=== PATIENT | male | born 1955 | race Caucasian/White ===

== ENCOUNTER 2022-12-16 06:37 | Day surgery (SDC) | payer OTHER, SELFPAY ==
--- NOTE | 2022-12-15 10:31 | HO.ANESPROP2 ---
Documented by User: Marva Emmanuel NP 12/15/22 10:32 HPI - Anesthesia Eval Consult details Narrative: 67yo M for Colonoscopy FOR[facility] Past Medical History Medical History (Updated 12/15/22 @ 08:20 by Veronica Light RN) Anxiety Bilateral inguinal hernia C. difficile diarrhea GERD (gastroesophageal reflux disease) Hematuria High cholesterol History of electroencephalogram History of MRI Irritable bowel syndrome Near syncope Surgical History Surgical History (Updated 12/15/22 @ 08:19 by Veronica Light RN) H/O prostatectomy History of colonoscopy with polypectomy History of eye surgery History of hand surgery History of oral surgery Social History Social History Patient Tobacco Use Status: Former Tobacco user Quit Date: 1991 Are you DNR?: No Advance Directives: No Advance Directives Information Provided: Yes Meds Allergies Allergy/AdvReac Type Severity Reaction Status Date / Time No Known Allergies Allergy Unverified 05/07/20 16:16 Home Medications Medication Instructions Recorded Confirmed Last Taken Type atorvastatin 20 mg tablet 20 mg PO Q OTHER DAY 12/16/22 12/16/22 12/13/22 History Exam Exam Date and Time: December 15, 2022 1031 Assessment and Plan Assessment Anesthesia Assessment: Chart Reviewed Documented by User: Chikis Daniel MD 12/16/22 07:51 [facility] Past Medical History Medical History (Updated 12/15/22 @ 08:20 by Veronica Light RN) Anxiety Bilateral inguinal hernia C. difficile diarrhea GERD (gastroesophageal reflux disease) Hematuria High cholesterol History of electroencephalogram History of MRI Irritable bowel syndrome Near syncope Family History Family history of problems with anesthesia: No Surgical History Surgical History (Updated 12/15/22 @ 08:19 by Veronica Light RN) H/O prostatectomy History of colonoscopy with polypectomy History of eye surgery History of hand surgery History of oral surgery History of Problems with Anesthesia: No Social History Social History Patient Tobacco Use Status: Former Tobacco user Quit Date: 1991 Are you DNR?: No Advance Directives: No Advance Directives Information Provided: Yes Meds Allergies Allergy/AdvReac Type Severity Reaction Status Date / Time No Known Allergies Allergy Unverified 05/07/20 16:16 Home Medications Medication Instructions Recorded Confirmed Last Taken Type atorvastatin 20 mg tablet 20 mg PO Q OTHER DAY 12/16/22 12/16/22 12/13/22 History Exam Airway Mallampati Class: II TM Dist: >3cm Neck ROM: Full Heart: rrr Lungs: cta Assessment and Plan Assessment Anesthesia Assessment: Anesthesia Plan Discussed Final Anesthetic Review Family History of Problems with Anesthesia: No History of Problems with Anesthesia: No NPO: Yes ASA Class: II Final Preanesthetic Review: No Changes in Pt Med Stat, Meds/Allgs Chart Reviewed, Consent Obtained/Reviewed and Anes Risks/Benef Reviewed Patient Risk: Low Procedure Risk: Low Anesthetic Plan Anesthetic Plan: MAC: Disposition: Standard PACU
[2022-12-16 06:09] VITALS: BMI 29.0
[2022-12-16 06:38] VITALS: BP 132/77; PULSE 74; RESP 18; TEMP 36.1; O2SAT 99
[2022-12-16] MEDS: Lactated Ringers 1,000 ML 100 ML IVCONT (07:05)
--- NOTE | 2022-12-16 08:27 | PM.OP ---
Brief Operative Note Date of Service: 12/16/22 Pre-op diagnosis: Screening Post-op diagnosis: other (Colon polyps) Procedure: Colonoscopy to the cecum with bx/removal of polyps Surgeon: Dav Rose Anesthesia: MAC Was an Business [employer] used for this Procedure?: No Estimated blood loss (mL): 2.0 Pathology: other (A. Cecal polyp B. Transverse colon polyp) Condition: stable Disposition: PACU
[2022-12-16 08:30] VITALS: BP 95/57; PULSE 67; RESP 16; TEMP 36.4; O2SAT 96
[2022-12-16 08:45] VITALS: BP 103/67; PULSE 60; RESP 16; TEMP 36.3; O2SAT 98
--- NOTE | 2022-12-19 11:11 | OP_ITS ---
DATE OF SERVICE: 12/16/2022 SURGEON: Dav Rose MD INDICATIONS: The patient presents for evaluation of colorectal cancer screening and prior history of tubular adenoma of the colon. Full consent has been obtained from him for this, including risks of bleeding and perforation. PREOPERATIVE DIAGNOSIS: POSTOPERATIVE DIAGNOSIS: PROCEDURE PERFORMED: Colonoscopy to the cecum with biopsy and removal of polyps. ESTIMATED BLOOD LOSS: COMPLICATIONS: ANESTHESIA: Monitored anesthesia care. ASSISTANTS: SPECIMENS: PREOPERATIVE DIAGNOSES: Colorectal cancer screening and prior history of tubular adenoma of the colon. POSTOPERATIVE DIAGNOSES: Colorectal cancer screening and prior history of tubular adenoma of the colon, small colon polyps, diverticulosis and internal hemorrhoids. DESCRIPTION OF PROCEDURE: The patient was placed in the left lateral decubitus position. The digital rectal exam revealed no abnormalities. The Olympus video pediatric colonoscope was entered into the rectum and advanced easily to the cecum. Once in the cecum, I did identify a normal-appearing cecal pouch with appendiceal orifice, other than a 3 mm polyp which was biopsied and completely removed with the cold biopsy forceps. The remainder of the cecum and ileocecal valve appeared normal. There was transillumination of light deep in the right lower quadrant. The scope was slowly withdrawn assessing all mucosal surfaces carefully. Preparation was excellent. In the transverse colon, there was an approximately 3 or 4 mm polyp which was biopsied and removed with the cold biopsy forceps. I did not visualize any other polyps, colitis nor angiodysplasia. There was a mild amount of sigmoid diverticulosis. In the rectum, the scope was retroflexed visualizing internal hemorrhoids, but no other pathology. The rectal mucosa appeared normal. The scope was straightened and withdrawn from the patient. He tolerated the procedure well and was returned to the recovery area in stable condition. IMPRESSION: 1. Colon polyps. 2. Diverticulosis. 3. Internal hemorrhoids. PLAN: The results of the biopsies will be checked. I would recommend a repeat colonoscopy in 5 years. He will otherwise see me on a p.r.n. basis. MD HERMINIA Goodwin/JUNE / [id number] MTDD
== END 2022-12-16 09:10 | disposition home or self-care (01) ==
PROVIDERS: PCP Internal Medicine; Visit Provider Internal Medicine
PROC: 0DJD8ZZ Inspection of Lower Intestinal Tract, Via Natural or Artificial Opening Endoscopic (ICD-10-PCS; CPT 45378; principal; 2022-12-16 07:30)
DX: Z12.11 Encounter for screening for malignant neoplasm of colon (principal); Z86.010 Personal history of colon polyps; D12.3 Benign neoplasm of transverse colon; K63.5 Polyp of colon; K57.30 Diverticulosis of large intestine without perforation or abscess without bleeding; K64.8 Other hemorrhoids; K58.9 Irritable bowel syndrome, unspecified; R14.0 Abdominal distension (gaseous); K21.9 Gastro-esophageal reflux disease without esophagitis; E78.5 Hyperlipidemia, unspecified; F41.1 Generalized anxiety disorder; E78.00 Pure hypercholesterolemia, unspecified; R55 Syncope and collapse; Z79.899 Other long term (current) drug therapy; Z87.891 Personal history of nicotine dependence
CPT/HCPCS: 45380; 88305

== ENCOUNTER 2024-04-16 11:39 | Emergency (ER) | payer OTHER, SELFPAY ==
--- NOTE | ~2024-04-16 | CT_ITS ---
EXAMINATION: CT ABDOMEN AND PELVIS WITHOUT CONTRAST CLINICAL INFORMATION: Lower abdominal discomfort COMPARISON: 08/05/2016 TECHNIQUE: Multidetector volumetric imaging was performed from the superior aspect of the liver through the pubic symphysis. Sagittal and coronal reformatted images were obtained on the technologist's workstation. This CT examination was performed using dose optimization techniques as appropriate, variously including the following: *Automated exposure control *Adjustment of mA and/or kV according to patient size (this includes techniques or standardized protocols for targeted exams where dose is matched to indication/reason for exam; i.e. extremities or head) *Use of iterative reconstruction technique DLP: 527 mGy-cm FINDINGS: LUNG BASES: Minor bibasilar atelectasis. LIVER, GALLBLADDER, AND BILIARY TREE: The liver is normal in size, shape, and attenuation. No focal hepatic lesion or biliary ductal dilatation is present. The gallbladder is unremarkable with no evidence of radiopaque gallstones, gallbladder wall thickening, or obvious pericholecystic inflammatory changes. PANCREAS: Unremarkable. SPLEEN: Unremarkable. ADRENAL GLANDS: Unremarkable. KIDNEYS AND URETERS: No calcification, mass or perinephric collection. There is slight distention of the left collecting system but I do not see an obstructing stone. No evidence of calcifications along the course of the ureters. BLADDER: Decompressed. No intrinsic calcifications are seen. GASTROINTESTINAL TRACT: No bowel obstruction or right or left lower quadrant inflammatory change. Sigmoid diverticulosis without diverticulitis. Appendix normal. ABDOMINAL WALL: No significant hernia is appreciated. LYMPH NODES: Normal. VASCULAR: Unremarkable. PELVIC VISCERA: Unremarkable. OSSEOUS STRUCTURES: Unremarkable. CT/CT abdomen pelvis wo IV con IMPRESSION: Slight distention of the left collecting system could be the sequela of a recently passed stone although no obstructing calculus is seen at this time. Fleischner guidelines were followed. Electronically signed by: Fernando Mcintosh MD 04/16/2024 01:49 PM EDT
--- NOTE | 2024-04-16 12:13 | ED_ITS ---
HPI - Abdominal Pain General Chief Complaint: Abdominal Pain Stated Complaint: Abd pain Time Seen by Provider: 04/16/24 16:35 Source: patient Mode of arrival: ambulatory Limitations: no limitations History of Present Illness ED Provider: alicia SALGADO narrative: Patient with history of IBS and GERD otherwise healthy just retired comes here for increased abdominal discomfort and bloating especially after eating has lost about 7 lb in 1 week no blood in the stool had previous colonoscopy last year which was negative no fever no chills no urinary symptoms no history of kidney stone or gallstone Related Data Home Medications ?Medication ?Instructions ?Recorded ?Confirmed atorvastatin 20 mg tablet 20 mg PO Q OTHER DAY 12/16/22 12/16/22 Previous Rx's ?Medication ?Instructions ?Recorded dicyclomine 20 mg tablet 20 mg PO TID PRN Abdominal 04/16/24 Discomfort #30 tabs Allergies Allergy/AdvReac Type Severity Reaction Status Date / Time No Known Allergies Allergy Verified 04/16/24 12:21 Review of Systems Review of Systems Yes all other systems are reviewed and are negative PMFSH Past Medical History Medical History History of electroencephalogram History of MRI Bilateral inguinal hernia Irritable bowel syndrome Near syncope Hematuria C. difficile diarrhea Anxiety High cholesterol GERD (gastroesophageal reflux disease) Surgical History History of oral surgery History of eye surgery History of hand surgery H/O prostatectomy History of colonoscopy with polypectomy Social History Social History Alcohol intake: current Alcohol intake frequency: holidays/special occasions only Patient Tobacco Use Status: Former Tobacco user Smoked in Last 30 Days: No Use of substances other than those prescribed or required for medical reasons: No Advance Directives: No Advance Directives Information Provided: No Do you have a plan to hurt others: No Plan Physical Exam ED Vital Signs: Vital Signs - 24 hr 04/16/24 12:18 04/16/24 16:18 Temperature 98.5 F 96.5 F L Pulse Rate 65 96 Respiratory Rate 18 14 Blood Pressure 117/66 135/79 Pulse Oximetry 98 100 Oxygen Delivery Method Room Air Room Air BMI result Body Mass Index 27.5 Appearance: Alert. Oriented X3. No acute distress. Eyes: No pallor or icterus ENT: Pharynx normal. Oral Mucosa moist Neck: Normal inspection. Neck supple. CVS: Normal heart rate and rhythm. Pulses normal. Respiratory: No respiratory distress. Equal air entry bilateral, no wheezing/rales/rhonchi Abdomen: Soft and mild diffuse discomfort no guarding or rebound tenderness. Bowel sounds are present, no mass palpable, no CVA tenderness Skin: Skin warm and dry. Normal skin color. Normal skin turgor. Extremities: No lower extremity edema. No calf tenderness Neuro: Oriented X 3. No motor deficit. Course Course Course Narrative: This is an RME done by CJ Montanez: Additional HPI, ROS, PE not included below will be deferred to primary provider. 69 year old male presents w/ lower abd pain X 1 week and no BM reports pain radiates to his back now. He is pretty uncomfortable. Denies nausea, vomiting, headache, vision changes, dizizness, weakness Appearance: Alert.? Oriented X3.? No acute cardiopulmonary distress distress.? Head: Normocephalic, atraumatic, no step-offs or deformities? CVS: Pulses normal.? Respiratory: No respiratory distress.? Abdomen: Soft and + diffuse lower abd tenderness.? Skin: ? Normal skin color. Extremities: 5/5 strength to bilateral upper and lower extremities Back: No midline tenderness, no C-spine tenderness, full range of motion, No CVA tenderness bilaterally Neuro: Oriented X 3.? No motor deficit.? No sensory deficit. Medical Decision Making Medical Decision Making [facility] Narrative: Patient has diffuse abdominal discomfort with normal labs CT scan without any acute findings showed some dilatation of the ureters but no stones UA is negative patient does have history of IBS likely the cause for the pain prescribe Bentyl patient had colonoscopy last year which was negative Differential Diagnosis Differential Diagnoses: The differential diagnosis associated with the presentation includes Lab Data MDM Lab Attestation statement: I reviewed the patient's lab results. 04/16/24 12:11 04/16/24 12:11 Labs: Lab Results 04/16/24 Range/Units 12:11 WBC 5.8 (4.8-10.8) X10*3/uL RBC 5.16 (4.60-5.80) X10*6/uL Hgb 16.0 (14.0-18.0) g/dl Hct 47.3 (42.0-52.0) % MCV 91.7 (80.0-98.0) fL MCH 31.0 (27.0-33.0) pg MCHC 33.8 (31.0-36.0) g/dl RDW 12.7 (11.0-16.0) % Plt Count 228 (160-400) X10*3/uL MPV 9.4 (9.4-12.4) fL Immature Gran % (Auto) 0.2 (0.0-0.4) % Neut % (Auto) 57.2 (45-73) % Lymph % (Auto) 29.2 (20-40) % [place] % (Auto) 11.1 H (2-11) % Eos % (Auto) 1.6 (0-4) % Baso % (Auto) 0.7 (0-2) % Lymph # (Auto) 1.7 (1.2-4.9) X10*3/uL [place] # (Auto) 0.6 (0.1-1.2) X10*3/uL Eos # (Auto) 0.1 (0.0-0.4) X10*3/uL Baso # (Auto) 0.0 (0.0-0.2) X10*3/uL Abs Immat Gran (auto) 0.01 (0.00-0.03) X10*3/uL Absolute Neuts (auto) 3.3 (2.0-8.3) x10*3/uL Absolute Nucleated RBC 0.000 (0.0-0.012) X10*3/uL Nucleated RBC % (auto) 0.0 (0.0-0.2) /100WBC Sodium 140 (135-145) mmol/L Potassium 4.3 (3.3-5.1) mmol/L Chloride 106 (96-108) mmol/L Carbon Dioxide 26 (22-29) mmol/L Anion Gap 12 (12-20) BUN 14 (9-16) mg/dL Creatinine 0.86 (0.5-1.4) mg/dL Estim Creat Clear Calc 88.7 Estimated GFR > 60 Random Glucose 90 (60-115) mg/dL Calcium 9.4 (8.4-10.2) mg/dL Magnesium 2.4 (1.6-2.6) mg/dL Total Bilirubin 0.6 (0.0-1.0) mg/dL AST 22 (5-37) U/L ALT 23 (0-40) U/L Alkaline Phosphatase 68 (39-117) U/L Total Protein 7.3 (6.5-8.0) g/dL Albumin 4.3 (3.5-5.0) g/dL Lipase 24 (8-78) U/L Urine Color Yellow Urine Appearance Clear Urine pH 6.5 (5.0-9.0) Ur Specific [place] 1.015 (1.005-1.025) Urine Protein Negative (Neg-Trace) mg/dL Urine Glucose (UA) Negative (Negative) mg/dL Urine Ketones Negative (Negative) mg/dL Urine Blood Negative (Negative) Urine Nitrite Negative (Negative) Ur Leukocyte Esterase Negative (Negative) Independent Interpretation I performed an independent interpretation of an: CT Scan Interpretation: Negative acute Radiology Impression Discussion of test interpretation with radiology: I have reviewed the radiologist's reading. Discharge Plan Discharge Clinical Impression: Irritable bowel syndrome Patient Disposition: Home, Self-Care Instructions: Irritable Bowel Syndrome (ED) Additional Instructions: Drink plenty of fluids Avoid food as listed to you , follow FODMAP DIET TAKE DICYCLOMINE 1 TABLET EVERY 8 HOURS NEEDED FOR ABDOMINAL DISCOMFORT Prescriptions: New dicyclomine 20 mg tablet 20 mg PO TID PRN (Reason: Abdominal Discomfort) Qty: 30 0RF No Action atorvastatin 20 mg Tablet 20 mg PO Q OTHER DAY Patient Comments: every other day Print Language: Kazakh
[2024-04-16 12:14] LABS: MANUAL DIFF FLAG NO
[2024-04-16 12:16] LABS: Basophils Percent Auto 0.7 % (0-2); Eosinophils Absolute Auto 0.1 X10*3/uL (0.0-0.4); Eosinophils Percent Auto 1.6 % (0-4); Hematocrit 47.3 % (42.0-52.0); Imm Gran Abs Auto 0.01 X10*3/uL (0.00-0.03); Imm Gran Pct Auto 0.2 % (0.0-0.4); Lymphocytes Absolute Auto 1.7 X10*3/uL (1.2-4.9); Lymphocytes Percent Auto 29.2 % (20-40); Mean Corpuscular HGB Conc 33.8 g/dl (31.0-36.0); Mean Corpuscular Volume 91.7 fL (80.0-98.0); Mean Platelet Volume 9.4 fL (9.4-12.4); Monocytes Absolute Auto 0.6 X10*3/uL (0.1-1.2); Monocytes Percent Auto 11.1 % (2-11); Neutrophils Absolute Auto 3.3 x10*3/uL (2.0-8.3); Neutrophils Percent Auto 57.2 % (45-73); Platelet Count 228 X10*3/uL (160-400); Red Blood Count 5.16 X10*6/uL (4.60-5.80); Red Cell Distribution Width 12.7 % (11.0-16.0); White Blood Count 5.8 X10*3/uL (4.8-10.8)
[2024-04-16 12:17] LABS: Appearance Urine Clear; Color Urine Yellow; Glucose Urine UA Negative (Negative); Leukocyte Esterase Urine Negative (Negative); Nitrite Urine Negative (Negative); PH 6.5 (5.0-9.0); Specific Gravity - Urine 1.015 (1.005-1.025); Urine Blood Negative (Negative); Urine Ketones Negative (Negative); Urine Protein Negative (Neg-Trace)
[2024-04-16 12:18] VITALS: BP 117/66; PULSE 65; RESP 18; TEMP 36.9; O2SAT 98; BMI 27.5
[2024-04-16 12:33] LABS: Alanine Aminotransferase 23 U/L (0-40); Albumin Level 4.3 g/dL (3.5-5.0); Alkaline Phosphatase 68 U/L (39-117); Anion Gap 12 (12-20); Aspartate Amino Transferase 22 U/L (5-37); Bilirubin Total 0.6 mg/dL (0.0-1.0); Blood Urea Nitrogen 14 mg/dL (9-16); Calcium 9.4 mg/dL (8.4-10.2); Carbon Dioxide 26 mmol/L (22-29); Chloride 106 mmol/L (96-108); Creatinine Clr Calc Pharmacy 88.7; Estimated Glomerular Filt Rate > 60; Glucose Random 90 mg/dL (60-115); Lipase 24 U/L (8-78); Magnesium 2.4 mg/dL (1.6-2.6); Potassium 4.3 mmol/L (3.3-5.1); Sodium 140 mmol/L (135-145); Total Protein 7.3 g/dL (6.5-8.0)
[2024-04-16 16:18] VITALS: BP 135/79; PULSE 96; RESP 14; TEMP 35.8; O2SAT 100
[2024-04-16 17:20] VITALS: BP 135/79; PULSE 96; RESP 14; TEMP 35.8; O2SAT 100
[2024-04-16] MEDS: Dicyclomine HCl 10 MG CAPSULE 20 MG PO (17:20)
== END 2024-04-16 17:22 | disposition home or self-care (01) ==
PROVIDERS: Physician Assistant; Absent Provider Internal Medicine; Emergency Provider Internal Medicine; PCP Internal Medicine
DX: K58.9 Irritable bowel syndrome, unspecified (principal); R10.9 Unspecified abdominal pain; Z79.899 Other long term (current) drug therapy
CPT/HCPCS: 36415; 74176; 80053; 81003; 83690; 83735; 85025; 99284